=== PATIENT | female | born 1970 | race Caucasian/White ===

== ENCOUNTER 2019-11-08 23:56 | Emergency (ER) | payer SELFPAY ==
[2019-11-08 23:56] VITALS: BP 151/100; PULSE 84; RESP 16; TEMP 37.2; O2SAT 98; BMI 34.0
--- NOTE | 2019-11-09 00:15 | ED.VIS.INJ ---
History of Present Illness Chief Complaint: Lower Extremity Injury Informant: Patient Onset: Weeks Mechanism/Context: Blunt Injury Quality of Pain: Dull, Aching Location: Anterior mid left leg Current Severity: Mild Maximum Severity: Severe Worsened by: Palpation over the anterior mid leg medially and ambulation Relieved by: Elevation and rest Associated Symptoms: Negative for: Parasthesias, Weakness, Loss of function, Inability to ambulate, Loss of consciousness, Amnesia Narrative: Patient is a 49-year-old female who presents with left leg pain status post blunt trauma. She was accidentally kicked by her 1 week ago. He attempted to kick a dog. She states impact was the lateral mid left calf. She is reporting pain medial mid left leg where there is discoloration and soft tissue swelling. She also reports pain going down her leg. She is able to bear weight. She is concerned because of increased discoloration in her feet and swelling of her feet. She admits to not being mobile. She has taken Tylenol for the pain with little effect. She initially applied heat. She is not elevating her foot adequately or properly. She denies history of PE or DVT. Her major concern is blood clot. Prior similar symptoms: No Recent Illness/Hospitalization: No - Past Medical History (1) No significant past medical history Status: Acute Past Medical History - Allergies and Home Meds Allergies/Adverse Reactions: Allergies Penicillins [PCN] Allergy (Verified 11/09/19 00:00) PT UNSURE OF REACTION vancomycin Allergy (Verified 11/09/19 00:00) NEEDS FOLLOW-UP Primary Care Physician: NOT,DEFINED [Primary Care Provider] - Prior records reviewed: Yes Past Medical History: None Surgical History: noncontributory Lives: Spouse/ Significant Other Smoking Status: Current every day smoker Alcohol: Rare Drugs: None Review of Systems General: Denies: Chills, Fever, Subjective, Sweats Cardiovascular: Reports: Chest pain, Palpitations Respiratory: Reports: Dyspnea, Dyspnea on exertion Musculoskeletal: Reports: Swelling, Extremity Pain. Denies: Myalgias, Arthralgias, Neck pain, Back pain Skin: Denies: Rash, Abscess, Abrasions, Wounds Hematologic: Denies: Easy bruising, Easy bleeding Allergy: Denies: Uticaria, Swelling of the mouth, Swelling of the tongue Physical Exam Vital Signs/Narrative: Vital Signs Temp Pulse Resp BP Pulse Ox 11/08/19 23:56 98.9 F 84 16 151/100 H 98 Inital Vital Signs reviewed: Yes General: Well nourished, Well developed, Obese Head: Normocephalic, Atraumatic Eyes: Perrl, EOMI. Negative for: Pale conjunctiva, Scleral icterus ENT: No trauma Neck: Nontender, Full ROM Cardiovascular: Regular rate, Regular rhythm Respiratory: No distress Extremeties: There is swelling noted mid medial anterior left leg. There is a palpable hematoma where she complains of the most significant discomfort. There is no evidence of cellulitis i.e. erythema, warmth, induration and there is no lymphangitis. There is no fluctuance. There is no pain to palpation along the distribution of deep venous system. There is no palpable cords. DP and PT pulse are palpable but diminished secondary to edema. Skin: Normal color, No rash, Trauma - There is soft tissue swelling with ecchymosis noted mid medial left leg with edema of the left foot and discoloration of the second, third, fourth and fifth toe.. Negative for: Cyanosis, Diaphoresis, Jaundice, No Trauma Neurological: Alert, Oriented x3, Normal Strength, Normal Sensation. Negative for: Normal Gait Psychological: Normal affect - Glascow Coma Scale Eye Opening: Spontaneous Motor: Obeys Commands Verbal: Oriented Coma Scale Total: 15 Diagnostic/Tx/Re-eval - Medical Decision Making Patient has history of blunt trauma. Physical findings are consistent with injury due to blunt trauma. Clinically patient area of swelling and discomfort is not in the location of the deep venous system. Patient's been informed where she is tender and has swelling there is no concern for DVT. She was informed why her foot was swollen and discolored. Patient has no contraindication to NSAIDs. She did not wish to receive any medicine. She was informed she must elevate and apply ice. She was told not to wear tight leggings and to be mobile because immobility tight clothing after trauma is a risk factor for blood clot. ED Disposition - Plan for ED Patient: Disposition: Home or Assisted Living Diagnosis: Contusion of left lower leg, initial encounter, Dependent edema Instructions: ED EXTREMITY CONTUSION Lower Referrals: NOT,DEFINED [Primary Care Provider] - Additional Instructions: 1. Elevate toe above nose for the next several days 2. Apply ice 20 to 30 minutes per application 6-8 times a day 3. Need to increase ambulation 4. You may take either 4 ibuprofen tablets every 8 hours or 2 Aleve tablets every 12 hours. 5. If you develop chest pain or shortness of breath return to the emergency department
== END 2019-11-09 00:53 | disposition home or self-care (01) ==
PROVIDERS: Emergency Provider Emergency Medicine
DX: S80.12XA Contusion of left lower leg, initial encounter (principal); R60.9 Edema, unspecified; W50.1XXA Accidental kick by another person, initial encounter; Y93.9 Activity, unspecified; Y99.9 Unspecified external cause status; R07.9 Chest pain, unspecified; E66.9 Obesity, unspecified; F17.200 Nicotine dependence, unspecified, uncomplicated; Z88.0 Allergy status to penicillin
CPT/HCPCS: 99282

== ENCOUNTER 2022-05-08 11:45 | Emergency (ER) | payer SELFPAY ==
[2022-05-08 11:47] VITALS: BP 188/104; PULSE 60; RESP 18; TEMP 36.3; O2SAT 100; BMI 32.3
--- NOTE | 2022-05-08 11:58 | EKG12_ITS ---
Test Reason : DIZZY Blood Pressure : / mmHG Vent. Rate : 056 BPM Atrial Rate : 056 BPM P-R Int : 172 ms QRS Dur : 086 ms QT Int : 422 ms P-R-T Axes : 030 -05 000 degrees QTc Int : [address] & T wave abnormality, consider anterior ischemia Abnormal ECG Confirmed by UMER GONSALEZ, DIVYA ([id number]), advertising editor KATY PADILLA ([id number]) on 05/09/2022 9:17:07 AM Referred By: GEORGE Confirmed By:DIVYA OWUSU MD
[2022-05-08 12:48] VITALS: BP 146/97; PULSE 61; RESP 13
[2022-05-08 13:55] LABS: Absolute Lymphocyte Count 2.04 X10^3/uL (0.83-4.51); Absolute Neutrophil Count 6.4 X10^3/uL (2.0-7.7); Basophil# 0.04 X10^3/uL; Basophil% 0.4 % (0-1); Eosinophil# 0.19 X10^3/uL; Hematocrit 46.7 % (37-47); Hemoglobin 15.5 g/dL (12.0-15.0); Lymphocyte # 2.04 X10^3/ul (0.83-4.51); Lymphocyte % 21.9 % (19-41); Mean Corp Hgb Conc 33.2 g/dL (32-36); Mean Corpuscular Hgb 31.3 pg (27.0-32.0); Mean Corpuscular Volume 94.3 fL (81-99); Mean Platelet Vol. 11.4 fl (6.2-12.0); Monocyte% 6.4 % (0-10); NRBC Flagged by Analyzer 0 % (0-5); Neutrophil % 68.9 % (47-70); Platelet Count 202 K/mm3 (150-450); RBC Distribution Width SD 41.5 fl (35.1-43.9); Red Blood Count 4.95 M/mm3 (4.2-5.4); White Blood Count 9.3 K/mm3 (4.4-11.0)
[2022-05-08 14:10] LABS: ALB/GLOB Ratio 1.1 RATIO (0.9-2.4); AST(SGOT) 10 U/L (15-37); Alanine Aminotransfer ALT/SGPT 15 U/L (13-56); Albumin, Serum 3.6 g/dL (3.2-5.0); Alkaline Phosphatase 110 U/L (45-117); Anion Gap 8 (5-15); BUN 12 mg/dL (7-18); BUN/Creat Ratio 16.5 RATIO (10-20); Chloride 109 mmol/L (98-107); Creatinine, Serum 0.73 mg/dL (0.55-1.02); EST Glomerular Filtration Rate 89 mL/min (>60); Est Glom Filt Rate - Afr Amer 108 mL/min (>60); Estimated Creatinine Clearance 85.35 ml/min; Globulin 3.3 g/dL (2.2-4.2); Glucose 83 mg/dL (74-106); Potassium 4.1 mmol/L (3.5-5.1); Protein, Total 6.9 g/dL (6.4-8.2); Sodium Level 142 mmol/L (136-145)
[2022-05-08 14:21] VITALS: BP 155/85; BP 155/97; BP 161/110; PULSE 50; PULSE 51; PULSE 63; RESP 16
[2022-05-08 14:52] LABS: Mucous, Urine 0 SEEN /hpf (<or=2+); Red Blood Cells-Urine 0 SEEN /hpf (0-5)
[2022-05-08 14:57] LABS: Color, Urine Straw (Yellow); Glucose, Dipstick Normal (Normal); Ketone-Dipstick 15 mg/dl (Negative); Leukocyte Esterase-Dipstick 500 /ul (Negative); Nitrite-Dipstick Negative (Negative); Occult Blood-Urine Negative /ul (Negative); Protein-Dipstick Negative (Negative); Urine Bilirubin Dipstick Negative (Negative); Urine Clarity Clear (Clear); Urine Urobilinogen Normal (Normal)
[2022-05-08 15:04] VITALS: BP 133/80; PULSE 56
[2022-05-08 15:23] LABS: Squamous Epithelial Cells - UA 0-5 SEEN /hpf (5-10); White Blood Cells 5-10 SEEN /hpf (0-5)
[2022-05-08 15:24] LABS: Bacteria 2+ /hpf (None Seen)
--- NOTE | 2022-05-08 16:08 | EDS_ITS ---
HPI History of Present Illness Chief Complaint: Hypertension Informant: patient Onset/Context/Timing Onset: Days Context: Gradual Onset Timing: Intermittent Quality: Weakness Location: Bilateral lower extremities Worsened by: Standing Relieved by: Nothing Associated Symptoms Associated Symptoms: Disoriented at times, left ear pain Narrative Narrative: Patient presents with lower extremity weakness and intermittent paresthesias in her arms for the past 2 days. Patient states her legs feel weak. Patient states it is worse when she is standing. Patient states that she feels disoriented at times. Patient also admits to some pain in her left ear. Patient denies any chest pain or shortness of breath. Patient denies any fevers or chills. Patient does admit to some urinary frequency but denies any dysuria or hematuria. Patient admits to a headache. Patient states this is generalized. Patient states nothing makes it better nothing makes it worse. Patient states she was seen in a different emergency department recently and had 2 CAT scans of her head to rule out a stroke. Patient states these were negative. [facility] Medical History Anxiety Home Medications rosaleea root extract 300 mg capsule 300 mg PO BID 05/08/22 [History Last Taken Unknown] sulfamethoxazole 800 mg-trimethoprim 160 mg tablet 1 tab PO BID #6 TABLETS 05/08/22 [Rx Last Taken Unknown] Allergy/AdvReac Type Severity Reaction Status Date / Time Penicillins [PCN] Allergy PT UNSURE Verified 05/08/22 11:46 OF REACTION vancomycin Allergy NEEDS Verified 05/08/22 11:46 FOLLOW-UP Surgical History History of Social History Smoking Status: Current every day smoker tobacco type: cigarettes ROS ROS ED Constitutional Constitutional ED: Denies chills or fever(s) Eyes Eyes: Denies blurry vision or change in vision ENT ENT ED: Reports ear pain left; Denies rhinorrhea or sore throat Cardiovascular Cardiovascular: Denies chest pain or palpitations Respiratory/Chest Respiratory/Chest: Denies cough or dyspnea Gastrointestinal Gastrointestinal: Denies nausea or vomiting Genitourinary Genitourinary ED: Reports urinary frequency; Denies dysuria or hematuria Musculoskeletal Musculoskeletal: Reports neck pain; Denies back pain Integumentary Denies abscess or rash Neurologic Neurologic: Reports headache(s), paresthesias RUE and LUE and weakness Psychiatric Psychiatric: Reports anxiety Allergic/Immunologic Allergic/Immunologic ED: Denies mouth swelling or urticaria EXAM Physical Exam Const Vital Signs: 05/08/22 11:47 05/08/22 12:48 05/08/22 12:48 Temperature 97.3 F L Temperature Source Temporal Pulse Rate 60 61 Pulse Rate [Lying] Pulse Rate [Sitting (for 1 minute prior to obtaining)] Pulse Rate [Standing (for 1 minute prior to obtaining)] Respiratory Rate 18 13 Respiratory Effort Normal Non-Labored Respiratory Pattern Normal Blood Pressure 188/104 H 146/97 H Blood Pressure [Lying] Blood Pressure [Sitting (for 1 minute prior to obtaining)] Blood Pressure [Standing (for 1 minute prior to obtaining)] Blood Pressure Mean 132 113 Blood Pressure Mean [Lying] Blood Pressure Mean [Sitting (for 1 minute prior to obtaining)] Blood Pressure Mean [Standing (for 1 minute prior to obtaining)] Pulse Ox 100 Oxygen Delivery Method Room Air Room Air 05/08/22 14:21 05/08/22 14:21 05/08/22 15:04 Temperature Temperature Source Pulse Rate 50 L 56 L Pulse Rate [Lying] 50 L Pulse Rate [Sitting (for 1 minute prior to obtaining)] 51 L Pulse Rate [Standing (for 1 minute prior to obtaining)] 63 Respiratory Rate 16 Respiratory Effort Respiratory Pattern Blood Pressure 155/85 H 133/80 H Blood Pressure [Lying] 155/85 H Blood Pressure [Sitting (for 1 minute prior to obtaining)] 155/97 H Blood Pressure [Standing (for 1 minute prior to obtaining)] 161/110 H Blood Pressure Mean 108 97 Blood Pressure Mean [Lying] 108 Blood Pressure Mean [Sitting (for 1 minute prior to obtaining)] 116 Blood Pressure Mean [Standing (for 1 minute prior to obtaining)] 127 Pulse Ox Oxygen Delivery Method Room Air 05/08/22 16:27 Temperature Temperature Source Pulse Rate 53 L Pulse Rate [Lying] Pulse Rate [Sitting (for 1 minute prior to obtaining)] Pulse Rate [Standing (for 1 minute prior to obtaining)] Respiratory Rate Respiratory Effort Respiratory Pattern Blood Pressure 127/81 H Blood Pressure [Lying] Blood Pressure [Sitting (for 1 minute prior to obtaining)] Blood Pressure [Standing (for 1 minute prior to obtaining)] Blood Pressure Mean Blood Pressure Mean [Lying] Blood Pressure Mean [Sitting (for 1 minute prior to obtaining)] Blood Pressure Mean [Standing (for 1 minute prior to obtaining)] Pulse Ox Oxygen Delivery Method Positive well nourished and well developed General Appearance ED: well developed HEENT Reports moist mucous membranes Neck supple and no JVD Resp normal respiratory effort and clear to auscultation bilaterally Cardio regular rate, regular rhythm and no murmurs GI normal to inspection, nondistended, normoactive bowel sounds and non-tender Palpation: soft Extremity normal to inspection General Extremety ED: Negative for edema or tenderness General Extremity: Negative for edema Neuro oriented x3, CN's II-XII intact bilaterally and no sensory deficits noted Sensorium / Orientation: alert Motor Exam: strength 5/5 throughout Psych mental status grossly normal Skin no rashes or lesions noted MDM MDM MDM Narrative Medical decision making narrative: EKG was obtained. On my interpretation, it showed a sinus bradycardia with a rate of 56. VA interval, QRS interval, and QTc intervals were all normal. [place] was normal. There are nonspecific ST-T wave changes. CBC was within normal limits. Comprehensive metabolic profile was within normal limits. Urinalysis s hows a leukocyte esterase of 500 with 5-10 white blood cells and 2+ bacteria. Urine culture was ordered. Patient was given a dose of Bactrim here. Patient was given a prescription for a short course of Bactrim. Since the patient reports having [address] scans of the brain recently, I do not feel she needs repeat CT scan of the brain at this time. Patient was advised that she will likely need further evaluation as an outpatient by primary care physician. Patient was instructed to follow-up with a primary care physician in 5 to 7 days. Patient understood and was agreeable with the plan. All questions were answered. Lab Data Attestation: I reviewed the patient's lab results. Labs: Laboratory Results - last 24 hr 05/08/22 05/08/22 05/08/22 13:50 13:50 14:45 WBC 9.3 RBC 4.95 Hgb 15.5 H Hct 46.7 MCV 94.3 MCH 31.3 MCHC 33.2 RDW Std Deviation 41.5 RDW Coeff of Lit 12.0 Plt Count 202 MPV 11.4 Immature Gran % (Auto) 0.400 Neut % (Auto) 68.9 Lymph % (Auto) 21.9 [place] % (Auto) 6.4 Eos % (Auto) 2.0 Baso % (Auto) 0.4 Absolute Neuts (auto) 6.4 Absolute Lymphs (auto) 2.04 Nucleated RBC % 0 Sodium 142 Potassium 4.1 Chloride 109 H Carbon Dioxide 25.0 Anion Gap 8 BUN 12 Creatinine 0.73 Estim Creat Clear Calc 85.35 Est GFR (MDRD) Af Amer 108 Est GFR (MDRD) Non-Af 89 BUN/Creatinine Ratio 16.5 Glucose 83 Calcium 9.0 Total Bilirubin 0.60 AST 10 L ALT 15 Alkaline Phosphatase 110 Total Protein 6.9 Albumin 3.6 Globulin 3.3 Albumin/Globulin Ratio 1.1 Urine Color Straw Urine Clarity Clear Urine pH 7.0 Ur Specific [place] 1.010 Urine Protein Negative Urine Glucose (UA) Normal Urine Ketones 15 H Urine Occult Blood Negative Urine Nitrite Negative Urine Bilirubin Negative Urine Urobilinogen Normal Ur Leukocyte Esterase 500 H Urine RBC 0 SEEN Urine WBC 5-10 SEEN Ur Squamous Epith Cells 0-5 SEEN Urine Bacteria 2+ Urine Mucus 0 SEEN EKG Initial EKG: Interpretation: Sinus Bradycardia (56) and Non-Specific ST Changes Prior EKG tracings: not available for review Prior: No Prior Discharge Plan Triage Chief Complaint: Hypertension Other Complaint: Dizziness ED Provider: Giovani Cassidy Dx/Rx/DC Orders Clinical Impression: Urinary tract infection, Paresthesias, Weakness Instructions: ED Cystitis Female Adult, ED Weakness (Uncertain Cause), ED Paraesthesias Prescriptions: New sulfamethoxazole-trimethoprim [sulfamethoxazole-trimethoprim] 800-160 mg tablet 1 tab PO BID Qty: 6 0RF No Action ashhoustondha root extract 300 mg Capsule 300 mg PO BID Primary Care Provider: Care Physician,No Primary Referrals: Rosibel Roca [Non-Staff] - 5-7 Days Care Physician,No Primary [Primary Care Provider] - Disposition Disposition: Home, Self Care
[2022-05-08 16:27] VITALS: BP 127/81; PULSE 53
[2022-05-08] MEDS: Smz/Tmp Ds Tablet 1 TABLET PO (16:27)
== END 2022-05-08 16:30 | disposition home or self-care (01) ==
PROVIDERS: Emergency Provider Emergency Medicine; Visit Provider Emergency Medicine
DX: N39.0 Urinary tract infection, site not specified (principal); I10 Essential (primary) hypertension; R35.0 Frequency of micturition; R20.2 Paresthesia of skin; R51.9 Headache, unspecified; R42 Dizziness and giddiness; R41.0 Disorientation, unspecified; H92.02 Otalgia, left ear; R00.1 Bradycardia, unspecified; M54.2 Cervicalgia; R53.1 Weakness; F17.210 Nicotine dependence, cigarettes, uncomplicated
CPT/HCPCS: 80053; 81001; 85025; 93005; 99284; A4216